=== PATIENT | male | born 1990 | race Caucasian/White ===

== ENCOUNTER 2017-11-23 13:04 | Emergency (ER) | payer BC ==
[2017-11-23] MEDS ORDERED: Ketorolac 60 MG/2 ML SDV IM ONE (13:34)
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
--- NOTE | 2017-11-23 14:19 | CR ---
EXAMINATION: PA chest HISTORY: Pain. FINDINGS: The trachea is midline. The cardiomediastinal silhouette is within normal limits. No pulmonary infilt rates, effusions or pneumothorax. Mild angulation of the distal left clavicle. Correlate clinically for focal pain. IMPRESSION: No acute cardiopulmonary process.
--- NOTE | 2017-11-23 14:20 | CR ---
EXAMINATION: Right shoulder HISTORY: Pain COMPARISON: None TECHNIQUE: 3 views FINDINGS/IMPRESSION: There is no acute osseous abnormality, dislocation, or fracture. There is an anc hor noted within the humeral head. Glenohumeral joint space is preserved.
--- NOTE | 2017-11-23 14:21 | CR ---
EXAMINATION: Lumbar spine HISTORY: Pain COMPARISON: None TECHNIQUE: AP and lateral views FINDINGS: The lumbar spinal alignment is normal. The vertebral body heights and disc spaces appear we ll-maintained. There is no fracture or acute osseous or metallic. Bone mineralization is normal. The SI joints are symmetric. IMPRESSION: No acute osseous abnormality.
== END 2017-11-23 15:20 | disposition home or self-care (01) ==
LOC: MW.ED 13:04
DX: S49.91XA Unspecified injury of right shoulder and upper arm, initial encounter (principal); S39.92XA Unspecified injury of lower back, initial encounter; V29.9XXA Motorcycle rider (driver) (passenger) injured in unspecified traffic accident, initial encounter
CPT/HCPCS: 71045; 72100; 73030; 96372; 99283; J1885